=== PATIENT | female | born 1960 | race African-American/Black ===

== ENCOUNTER 2020-05-11 09:33 | Inpatient (IN) | payer SELFPAY ==
[~2020-05-11] VITALS: Ht 165.1 cm; Wt 70.8 kg
[2020-05-11] MEDS ORDERED: IPRATROPIUM BROMIDE (0.02%) 0.5MG/2.5ML NEB HHN STA (09:56)
[2020-05-11] MEDS ORDERED: ALBUTEROL (0.083%) 2.5MG/3ML NEB HHN STA (09:56)
[2020-05-11] MEDS ORDERED: METHYLPREDNISOLONE SOD SUCC 125 MG/2 ML VIAL IV STA (09:56)
[2020-05-11 10:18] LABS: BASOPHILS % 0.9 % (0.0-2.0); EOSINOPHILS % 1.9 % (0.0-5.0); HEMOGLOBIN. 10.9 g/dL (12.0-16.0); LYMPHOCYTES % 30.9 % (20.0-50.0); MEAN CORPUSCULAR HEMOGLOBIN 27.4 pg (28.0-32.0); MEAN CORPUSCULAR VOLUME 85.8 fL (81.0-99.0); MEAN PLATELET VOLUME 9.5 fl (7.4-10.4); MONOCYTES % 7.7 % (2.0-8.0); NEUTROPHILS % 58.6 % (40.0-76.0); PLATELET 254 x1000/uL (130-400); RED BLOOD CELL COUNT 3.97 mill/uL (4.2-5.4); RED CELL DISTRIBUTION WIDTH 15.2 % (11.6-14.6)
[2020-05-11 10:26] LABS: CHLORIDE 111 mEq/L (98-107)
[2020-05-11] MEDS ORDERED: ASPIRIN 81MG TABLET PO ONE (11:00)
[2020-05-11] MEDS ORDERED: FUROSEMIDE 40MG/4ML VIAL IVP ONE (11:00)
[2020-05-11] MEDS ORDERED: LORAZEPAM 2MG/ML CPJ IV ONE (12:00)
[2020-05-11] MEDS ORDERED: ALBUTEROL (0.083%) 2.5MG/3ML NEB HHN ONE (14:15)
[2020-05-11] MEDS ORDERED: AZITHROMYCIN 500 MG in DEXT 5% WATER 250 ML IV ONE (14:15)
[2020-05-11] MEDS ORDERED: CEFTRIAXONE 1 G PREMIX 50 ML IV ONE (14:15)
[2020-05-11 14:35] LABS: BG BASE EXCESS -3.3 mmol/L (-2.0-2.0); BG DEOXYHEMOGLOBIN 2.7 % (0.0-5.0); BG FRACTION INSPIRED OXYGEN 35; BG HCO3 ACT 21.7 mmol/L (22.0-26.0); BG METHEMOGLOBIN 0.2 % (0.0-1.5); BG OXYGEN SATURATION 97.3 % (92.0-98.5); BG OXYHEMOGLOBIN 97.1 % (94.0-97.0); BG PCO2 39.2 mmHg (35.0-45.0); BG PH 7.362 (7.350-7.450); BG PO2 110.6 mmHg (75.0-100.0); BG SAMPLE SITE RIGHT RADIAL; BG TOTAL HEMOGLOBIN 11.9 g/dL (12.0-18.0); BG VENT MODE MASK - AEROSOL
[2020-05-11] MEDS ORDERED: ONDANSETRON HCL 4MG/2ML INJ IV PRN (14:45)
[2020-05-11] MEDS ORDERED: NITROGLYCERIN 0.4MG TABLET SL SL PRN (14:45)
[2020-05-11] MEDS ORDERED: ACETAMINOPHEN 325MG TABLET PO PRN (14:45)
[2020-05-11] MEDS ORDERED: POTASSIUM CHLORIDE 20MEQ TABLET SR PO NR ×2 (14:45→21:00)
[2020-05-11] MEDS ORDERED: HYDRALAZINE 20MG/ML VIAL IV PRN (14:45)
[2020-05-11] MEDS: NITROGLYCERIN OINT 1GM/INCH UDPKT TD SCH ×2 (15:50→23:27)
[2020-05-11 18:56] LABS: CLARITY URINE CLEAR (CLEAR); COLOR URINE YELLOW (YELLOW); KETONES URINE 1+ (NEGATIVE); LEUKOCYTE ESTERASE URINE NEGATIVE (NEGATIVE); NITRITE URINE NEGATIVE (NEGATIVE); OCCULT BLOOD URINE NEGATIVE (NEGATIVE); PROTEIN URINE 2+ (NEGATIVE); SPECIFIC GRAVITY URINE 1.025 (1.005-1.030); UROBILINOGEN URINE 0.2 E.U./dL (0.2-1.0)
[2020-05-11 19:08] LABS: *AMPHETAMINES SCREEN URINE NEGATIVE (NEGATIVE)
[2020-05-11 19:09] LABS: *BARBITURATES SCREEN URINE NEGATIVE (NEGATIVE); *BENZODIAZEPINES SCREEN URINE NEGATIVE (NEGATIVE); *COCAINE SCREEN URINE NEGATIVE (NEGATIVE); METHADONE URINE SCREEN NEGATIVE (NEGATIVE); OPIATES URINE SCREEN NEGATIVE (NEGATIVE)
[2020-05-11] MEDS ORDERED: IOHEXOL-350 100 ML BOTTLE ONE (19:09)
[2020-05-11 19:10] LABS: CANNABINOID URINE SCREEN NEGATIVE (NEGATIVE); PHENCYCLIDINE URINE SCREEN NEGATIVE (NEGATIVE)
[2020-05-11 20:00] VITALS: BP 153/98
[2020-05-11] MEDS ORDERED: TRAZODONE HCL 50MG TABLET PO PRN (21:00)
[2020-05-11] MEDS ORDERED: FUROSEMIDE 100MG/10ML VIAL IVP NR (22:00)
[2020-05-11] MEDS: CARVEDILOL 3.125 MG TABLET PO SCH (22:49)
[2020-05-11] MEDS: LOSARTAN POTASSIUM 25 MG TABLET PO SCH (22:50)
[2020-05-11] MEDS: HEPARIN 5000 UNITS/ML VIAL SUBCUT SCH (22:51)
[2020-05-12] VITALS: BP 158/99
[2020-05-12] MEDS ORDERED: METF500S7 PO (01:34)
[2020-05-12] MEDS ORDERED: INSLIS SUBCUT (01:35)
[2020-05-12] MEDS ORDERED: INSU100I28 SQ (01:35)
[2020-05-12] MEDS ORDERED: LISI1POW MC (01:36)
[2020-05-12 04:00] VITALS: BP 130/86
[2020-05-12] MEDS: NITROGLYCERIN OINT 1GM/INCH UDPKT TD SCH ×3 (06:11→18:39)
[2020-05-12 06:38] LABS: BASOPHILS % 0.1 % (0.0-2.0); HEMATOCRIT. 31.9 % (36.0-48.0); HEMOGLOBIN. 10.4 g/dL (12.0-16.0); LYMPHOCYTES % 30.2 % (20.0-50.0); MEAN CORPUSCULAR HEMOGLOBIN 27.6 pg (28.0-32.0); MEAN CORPUSCULAR VOLUME 84.8 fL (81.0-99.0); MEAN PLATELET VOLUME 9.2 fl (7.4-10.4); MONOCYTES % 11.4 % (2.0-8.0); NEUTROPHILS % 58.3 % (40.0-76.0); PLATELET 256 x1000/uL (130-400); RED BLOOD CELL COUNT 3.77 mill/uL (4.2-5.4); RED CELL DISTRIBUTION WIDTH 15.1 % (11.6-14.6)
[2020-05-12] MEDS ORDERED: DEXTROSE 50% WATER 50ML SYRINGE IV PRN (06:45)
[2020-05-12 06:51] LABS: CHLORIDE 105 mEq/L (98-107)
[2020-05-12 07:06] LABS: HDL CHOLESTEROL 44 mg/dL (40-59)
[2020-05-12 07:08] LABS: LDL CHOLESTEROL 94 mg/dL (5-100)
[2020-05-12 07:11] LABS: T4 FREE 1.42 ng/dL (0.76-1.46)
[2020-05-12] MEDS: BLOOD SUGAR DIAGNOSTIC STRIP TEST SCH ×4 (07:29→21:07)
[2020-05-12 08:00] VITALS: BP 141/99
[2020-05-12] MEDS: INSULIN GLARGINE UD 100 UNITS/ML SYR SUBCUT SCH ×2 (10:35→21:34)
[2020-05-12] MEDS: HEPARIN 5000 UNITS/ML VIAL SUBCUT SCH ×2 (10:36→21:07)
[2020-05-12] MEDS: INSULIN LISPRO 100 UNITS/ML SUBCUT SCH ×4 (10:36→21:33)
[2020-05-12] MEDS: FUROSEMIDE 40MG/4ML VIAL IV SCH (10:36)
[2020-05-12] MEDS: ASPIRIN 81MG TABLET PO SCH (10:37)
[2020-05-12] MEDS: LOSARTAN POTASSIUM 25 MG TABLET PO SCH (10:37)
[2020-05-12] MEDS: CARVEDILOL 3.125 MG TABLET PO SCH ×2 (10:37→21:06)
[2020-05-12 12:00] VITALS: BP 131/92
[2020-05-12] MEDS: POTASSIUM CHLORIDE 20MEQ TABLET SR PO SCH (13:31)
[2020-05-12] MEDS: SPIRONOLACTONE 25MG TABLET PO SCH (13:31)
[2020-05-12 16:00] VITALS: BP 135/96
[2020-05-12 20:00] VITALS: BP 141/91
[2020-05-12] MEDS: LOSARTAN POTASSIUM 50 MG TABLET PO SCH (21:06)
[2020-05-13] VITALS: BP 124/86
[2020-05-13] MEDS: NITROGLYCERIN OINT 1GM/INCH UDPKT TD SCH ×4 (00:25→19:12)
[2020-05-13 04:00] VITALS: BP 125/86
[2020-05-13] MEDS: BLOOD SUGAR DIAGNOSTIC STRIP TEST SCH ×4 (06:48→20:38)
[2020-05-13 07:27] LABS: INR 1.1; PROTHROMBIN TIME 11.6 sec (9.6-11.0)
[2020-05-13] MEDS: INSULIN LISPRO 100 UNITS/ML SUBCUT SCH ×4 (07:30→21:26)
[2020-05-13 07:31] LABS: CHLORIDE 107 mEq/L (98-107)
[2020-05-13 07:33] LABS: BASOPHILS % 0.3 % (0.0-2.0); EOSINOPHILS % 4.4 % (0.0-5.0); HEMATOCRIT. 32.5 % (36.0-48.0); HEMOGLOBIN. 10.5 g/dL (12.0-16.0); LYMPHOCYTES % 30.2 % (20.0-50.0); MEAN CORPUSCULAR HEMOGLOBIN 27.5 pg (28.0-32.0); MEAN CORPUSCULAR VOLUME 85.1 fL (81.0-99.0); MEAN PLATELET VOLUME 9.2 fl (7.4-10.4); MONOCYTES % 7.6 % (2.0-8.0); NEUTROPHILS % 57.5 % (40.0-76.0); PLATELET 243 x1000/uL (130-400); RED BLOOD CELL COUNT 3.82 mill/uL (4.2-5.4); RED CELL DISTRIBUTION WIDTH 15.3 % (11.6-14.6)
[2020-05-13 08:00] VITALS: BP 136/89
[2020-05-13] MEDS: POTASSIUM CHLORIDE 20MEQ TABLET SR PO SCH (08:27)
[2020-05-13] MEDS: LOSARTAN POTASSIUM 50 MG TABLET PO SCH ×2 (08:27→20:38)
[2020-05-13] MEDS: FUROSEMIDE 40MG/4ML VIAL IV SCH (08:27)
[2020-05-13] MEDS: ASPIRIN 81MG TABLET PO SCH (08:27)
[2020-05-13] MEDS: CARVEDILOL 3.125 MG TABLET PO SCH (08:27)
[2020-05-13] MEDS: SPIRONOLACTONE 25MG TABLET PO SCH (08:27)
[2020-05-13 12:00] VITALS: BP 128/92
[2020-05-13] MEDS: INSULIN GLARGINE UD 100 UNITS/ML SYR SUBCUT SCH ×2 (12:42→21:26)
[2020-05-13] MEDS ORDERED: ASPIRIN/SOD BICARB/CITRIC ACID 324MG TAB EFF ONE (13:20)
[2020-05-13] MEDS ORDERED: FENTANYL CITRATE/PF 50MCG/ML 2ML VIAL ONE (13:20)
[2020-05-13] MEDS ORDERED: MIDAZOLAM HCL 2 MG/2 ML VIAL ONE (13:20)
[2020-05-13] MEDS ORDERED: LIDOCAINE HCL 1% 20ML VIAL (Pyxis) INJ ONE (13:41)
[2020-05-13] MEDS ORDERED: IODIXANOL 320MG/ML 100 ML BOTTLE IV ONE (13:41)
[2020-05-13] MEDS ORDERED: NITROGLYCERIN OINT 1GM/INCH UDPKT TD ONE (13:53)
[2020-05-13] MEDS ORDERED: ACETAMINOPHEN 325MG TABLET PO PRN (14:15)
[2020-05-13] MEDS ORDERED: MORPHINE SULFATE 2 MG/ML CPJ (NOT FOR IM USE) IV PRN (14:15)
[2020-05-13] MEDS ORDERED: ATROPINE SULFATE 1MG/10ML SYR IV PRN (14:15)
[2020-05-13] MEDS ORDERED: ONDANSETRON HCL 4MG/2ML INJ IV PRN (14:15)
[2020-05-13] MEDS ORDERED: SODIUM CHLORIDE 0.45% 1,000 ML IV SCH (14:30)
[2020-05-13 16:00] VITALS: BP 139/87
[2020-05-13 20:00] VITALS: BP 135/90
[2020-05-13] MEDS: AMLODIPINE 5MG TABLET PO SCH (20:38)
[2020-05-13] MEDS: CARVEDILOL 6.25 MG TABLET PO SCH (20:38)
[2020-05-14 00:33] VITALS: BP 104/64
[2020-05-14] MEDS: NITROGLYCERIN OINT 1GM/INCH UDPKT TD SCH ×3 (00:35→12:43)
[2020-05-14 04:30] VITALS: BP 125/82
[2020-05-14 06:16] LABS: BASOPHILS % 0.5 % (0.0-2.0); EOSINOPHILS % 4.6 % (0.0-5.0); HEMATOCRIT. 33.3 % (36.0-48.0); HEMOGLOBIN. 10.7 g/dL (12.0-16.0); LYMPHOCYTES % 41.3 % (20.0-50.0); MEAN CORPUSCULAR HEMOGLOBIN 27.2 pg (28.0-32.0); MEAN CORPUSCULAR VOLUME 84.5 fL (81.0-99.0); MEAN PLATELET VOLUME 8.6 fl (7.4-10.4); MONOCYTES % 10.9 % (2.0-8.0); NEUTROPHILS % 42.7 % (40.0-76.0); PLATELET 246 x1000/uL (130-400); RED BLOOD CELL COUNT 3.94 mill/uL (4.2-5.4); RED CELL DISTRIBUTION WIDTH 14.8 % (11.6-14.6)
[2020-05-14 06:30] LABS: CHLORIDE 105 mEq/L (98-107)
[2020-05-14] MEDS: BLOOD SUGAR DIAGNOSTIC STRIP TEST SCH ×2 (07:01→11:52)
[2020-05-14] MEDS: INSULIN LISPRO 100 UNITS/ML SUBCUT SCH ×2 (07:50→13:08)
[2020-05-14 08:15] VITALS: BP 122/84
[2020-05-14] MEDS: POTASSIUM CHLORIDE 20MEQ TABLET SR PO SCH (08:55)
[2020-05-14] MEDS: LOSARTAN POTASSIUM 50 MG TABLET PO SCH (08:56)
[2020-05-14] MEDS: SPIRONOLACTONE 25MG TABLET PO SCH (08:56)
[2020-05-14] MEDS: CARVEDILOL 6.25 MG TABLET PO SCH (08:56)
[2020-05-14] MEDS: ASPIRIN 81MG TABLET PO SCH (08:56)
[2020-05-14] MEDS: AMLODIPINE 5MG TABLET PO SCH (08:56)
[2020-05-14] MEDS ORDERED: FUROSEMIDE 40MG TABLET PO SCH (09:00)
[2020-05-14] MEDS: INSULIN GLARGINE UD 100 UNITS/ML SYR SUBCUT SCH (10:09)
[2020-05-14] MEDS ORDERED: AMLO5TAB88 PO (11:34)
[2020-05-14] MEDS ORDERED: LANTUSUD SUBCUT (11:34)
[2020-05-14] MEDS ORDERED: SPIR25TA PO (11:34)
[2020-05-14] MEDS ORDERED: LOSA50TA3 PO (11:34)
[2020-05-14] MEDS ORDERED: FURO40TA5 PO (11:34)
[2020-05-14] MEDS ORDERED: COR6 PO (11:34)
[2020-05-14 12:00] VITALS: BP 115/80
[2020-05-14 13:12] VITALS: BP 115/80
== END 2020-05-14 14:38 | disposition home or self-care (01) | DRG 192 ==
LOC: ER 09:33 → 6WST 14:02 → EDBEDREQ 14:06 → ENRESERV 20:03 → 6WST 21:00
PROVIDERS: ADMIT Internal Medicine; ATTEND Internal Medicine
PROC: 4A023N7 Measurement of Cardiac Sampling and Pressure, Left Heart, Percutaneous Approach (ICD-10-PCS; principal; 2020-05-13)
PROC: B2111ZZ Fluoroscopy of Multiple Coronary Arteries using Low Osmolar Contrast (ICD-10-PCS; 2020-05-13)
DX: I11.0 Hypertensive heart disease with heart failure (principal); D64.9 Anemia, unspecified; E87.6 Hypokalemia; E78.5 Hyperlipidemia, unspecified; G47.00 Insomnia, unspecified; I42.9 Cardiomyopathy, unspecified; Z20.828 Contact with and (suspected) exposure to other viral communicable diseases; J44.1 Chronic obstructive pulmonary disease with (acute) exacerbation; E11.9 Type 2 diabetes mellitus without complications; J96.01 Acute respiratory failure with hypoxia; E87.70 Fluid overload, unspecified; D25.9 Leiomyoma of uterus, unspecified; E43 Unspecified severe protein-calorie malnutrition; I07.2 Rheumatic tricuspid stenosis and insufficiency; I27.20 Pulmonary hypertension, unspecified; Z79.4 Long term (current) use of insulin; Z79.899 Other long term (current) drug therapy
CPT/HCPCS: 36415; 36600; 71045; 71275; 74177; 80053; 80061; 80305; 81003; 82375; 82805; 82962; 83036; 83735; 83880; 84439; 84443; 84484; 85025; 93005; 93306; 93458; 94640; 96374; 99291; C1769; C1893; J0360; J0456; J0696; J1644; J1815; J1940; J2060; J2250; J2270; J2930; J3010; J3490; J7060; Q9967; U0003-CS